=== PATIENT | female | born 1985 | race Caucasian/White ===

== ENCOUNTER → 2019-12-26 | Outpatient (CLI) | payer SELFPAY | LOC: CARD 13:15 | PROVIDERS: ATTEND Nurse Practitioner Family | DX: I45.6 Pre-excitation syndrome (principal); R00.2 Palpitations; I10 Essential (primary) hypertension | CPT/HCPCS: 93225; 93226; 93306 ==

== ENCOUNTER → 2021-03-30 | Outpatient (CLI) | payer SELFPAY | LOC: LABNPT 07:10 | PROVIDERS: ATTEND Pediatrics | DX: Z53.9 Procedure and treatment not carried out, unspecified reason (principal) | CPT/HCPCS: 87635 ==

== ENCOUNTER → 2021-04-20 | Outpatient (CLI) | payer SELFPAY | LOC: LABNPT 06:27 | PROVIDERS: ATTEND Pediatrics | DX: Z01.812 Encounter for preprocedural laboratory examination (principal); Z20.822 Contact with and (suspected) exposure to COVID-19 | CPT/HCPCS: 87635 ==

== ENCOUNTER 2021-04-22 18:59 | Outpatient (CLI) | payer OTHER | END 2021-04-23 06:57 | disposition home or self-care (01) | LOC: SLEEP 18:59 | PROVIDERS: ATTEND Pediatrics | DX: G47.33 Obstructive sleep apnea (adult) (pediatric) (principal); G47.00 Insomnia, unspecified; I10 Essential (primary) hypertension; I49.9 Cardiac arrhythmia, unspecified; N91.1 Secondary amenorrhea; J30.89 Other allergic rhinitis; I45.6 Pre-excitation syndrome; E66.01 Morbid (severe) obesity due to excess calories; Z68.44 Body mass index [BMI] 60.0-69.9, adult; Z20.822 Contact with and (suspected) exposure to COVID-19 | CPT/HCPCS: 95811 ==

== ENCOUNTER → 2022-02-04 | Outpatient (CLI) | payer SELFPAY | LOC: CARD 09:00 | PROVIDERS: ATTEND Internal Medicine Cardiovascular Disease | DX: I45.6 Pre-excitation syndrome (principal) | CPT/HCPCS: 93225; 93226; 93306 ==